=== PATIENT | female | born 1940 | race Caucasian/White ===

== ENCOUNTER → 2018-01-05 | Outpatient (CLI) | payer MEDICARE, BC ==
[~2018-01-05] MED LIST: ALPR.5 PO; BISA10S PR; CEPH250A PO; DOCU100 PO; LOSA50 PO; Milk Of Ma400 MG/5 M PO; OLME20 PO; OXYM.05NI; PROC10 PO; PROC5 PO; PROM25 PO; PROM25S PR; PROP10 PO
== END ==
LOC: LAB SHORT 07:49 → PLD 07:49
DX: D48.5 Neoplasm of uncertain behavior of skin (principal); L82.1 Other seborrheic keratosis
CPT/HCPCS: 88305

== ENCOUNTER 2018-02-05 11:38 | Day surgery (SDC) | payer MEDICARE, BC ==
[~2018-02-05] VITALS: Ht 157.5 cm; Wt 98.4 kg
== END 2018-02-05 14:38 | disposition home or self-care (01) ==
LOC: ORSCSDS 11:38
PROVIDERS: Ophthalmology
PROC: 08RJ3JZ Replacement of Right Lens with Synthetic Substitute, Percutaneous Approach (ICD-10-PCS; principal; 2018-02-05 13:30)
DX: H25.11 Age-related nuclear cataract, right eye (principal); I10 Essential (primary) hypertension; J45.909 Unspecified asthma, uncomplicated; K21.9 Gastro-esophageal reflux disease without esophagitis; E66.9 Obesity, unspecified; Z68.39 Body mass index [BMI] 39.0-39.9, adult; Z87.891 Personal history of nicotine dependence; Z79.82 Long term (current) use of aspirin; Z79.899 Other long term (current) drug therapy
CPT/HCPCS: J2250; J7040; V2632

== ENCOUNTER 2018-09-03 09:43 | Day surgery (SDC) | payer MEDICARE, BC ==
[~2018-09-03] VITALS: Ht 157.5 cm; Wt 97.1 kg
[~2018-09-03 09:43] MED LIST changes: +Aspirin EC81 MG; +FAMO20; +GABA300; +PRAV20
[2018-09-03] MEDS ORDERED: LISI20 PO (10:58)
== END 2018-09-03 12:22 | disposition home or self-care (01) ==
LOC: ORSCSDS 09:43
PROVIDERS: Ophthalmology
PROC: 08RK3JZ Replacement of Left Lens with Synthetic Substitute, Percutaneous Approach (ICD-10-PCS; principal; 2018-09-03 11:30)
DX: H25.12 Age-related nuclear cataract, left eye (principal); I10 Essential (primary) hypertension; J45.909 Unspecified asthma, uncomplicated; K21.9 Gastro-esophageal reflux disease without esophagitis; E66.01 Morbid (severe) obesity due to excess calories; Z68.39 Body mass index [BMI] 39.0-39.9, adult; Z79.82 Long term (current) use of aspirin; Z79.899 Other long term (current) drug therapy
CPT/HCPCS: J2001; J2250; J3010; J7120; V2632

== ENCOUNTER → 2019-04-05 | Outpatient (CLI) | payer MEDICARE, BC ==
[~2019-04-05] MED LIST changes: +LISI20 PO
== END | disposition home or self-care (01) ==
LOC: LAB SHORT 18:30 → LAB 18:30
DX: R30.0 Dysuria (principal)
CPT/HCPCS: 87077; 87086; 87186

== ENCOUNTER 2022-06-22 21:24 | Emergency (ER) | payer MEDICARE, BC ==
[~2022-06-22] VITALS: Ht 157.5 cm; Wt 90.3 kg
[2022-06-22 21:57] LABS: BASOPHILS ABSOLUTE AUTO 0.16 K/mm3 (0.00-0.23); BASOPHILS PERCENT AUTO 1 % (0-2); EOSINOPHILS ABSOLUTE AUTO 0.37 K/mm3 (0.00-0.68); EOSINOPHILS PERCENT AUTO 2 % (0-6); Hematocrit 45.4 % (33.0-51.0); Hemoglobin 14.8 g/dL (11.5-16.0); IMMATURE GRAN ABSOLUTE AUTO 0.41 K/mm3 (0.00-0.10); IMMATURE GRAN PERCENT AUTO 3 % (0-1); LYMPHOCYTES ABSOLUTE AUTO 1.47 K/mm3 (0.84-5.20); LYMPHOCYTES PERCENT AUTO 9 % (21-46); MONOCYTES ABSOLUTE AUTO 0.71 K/mm3 (0.16-1.47); MONOCYTES PERCENT AUTO 4 % (4-13); Mean Corpuscular HGB 27.7 pg (26.0-34.0); Mean Corpuscular HGB Conc 32.6 g/dL (31.5-36.5); Mean Corpuscular Volume 85 fL (80-100); Mean Platelet Volume 11.7 fL (9.1-12.4); NEUTROPHILS PERCENT AUTO 81 % (41-73); NRBC ABSOLUTE 0.03 K/mm3 (0.00-0.02); NRBC Auto 0.2 /100 WBC (0.0-0.2); Platelet Count 512 K/mm3 (150-400); RDW Coefficient Variation 16.3 % (11.7-14.2); RDW Standard Deviation 50.9 fL (35.1-46.3); Red Blood Cell Count 5.34 M/mm3 (3.80-5.20); White Blood Cell Count 16.02 K/mm3 (4.00-11.30)
[2022-06-22 22:14] LABS: Albumin, Blood 3.3 g/dL (3.4-5.0); Bilirubin, Total 0.4 mg/dL (0.1-1.0); Bun/Creatinine Ratio 24.6 (12.0-20.0); Calcium, Blood 8.3 mg/dL (8.5-10.1); Creatinine, Blood 0.9 mg/dL (0.40-1.00); Globulin, Blood 3.3 g/dL (2.2-4.0); Potassium, Blood 4.4 mmol/L (3.5-5.5); Total Protein, Blood 6.6 g/dL (6.4-8.2)
[2022-06-23 01:06] LABS: Blood, Urine Neg (Neg); Glucose Qualitative, Urine Neg (Neg); Ketones, Urine Neg (Neg); Leukocyte Esterase, Urine 1+ (Neg); Nitrite, Urine Pos (Neg); Protein, Urine 1+ (Neg); Urobilinogen, Urine 2+ (Normal)
[2022-06-23 01:14] LABS: Appearance, Urine Clear (Clear); Bilirubin, Urine 2+ (Neg); Color, Urine Orange (P-Yellow)
[2022-06-23 01:15] LABS: Bacteria Few /hpf; Red Blood Cells, Urine Not Seen /hpf (0-2); Squamous Epithelial Cells Rare /hpf (Few)
[2022-06-23 04:40] LABS: Influenza A, PCR NEGATIVE (NEGATIVE); Influenza B, PCR NEGATIVE (NEGATIVE); Resp Syncytial Virus, PCR NEGATIVE (NEGATIVE); SARS-Cov-2 (COVID-19) PCR, MMC NEGATIVE (NEGATIVE)
== END 2022-06-23 05:20 | disposition short-term general hospital (02) ==
LOC: ER 21:24
PROVIDERS: Emergency Medicine; Physician Assistant
DX: R10.9 Unspecified abdominal pain (principal); D72.829 Elevated white blood cell count, unspecified; R11.2 Nausea with vomiting, unspecified; J45.909 Unspecified asthma, uncomplicated; Z88.2 Allergy status to sulfonamides; Z88.8 Allergy status to other drugs, medicaments and biological substances; Z79.899 Other long term (current) drug therapy; Z79.82 Long term (current) use of aspirin
CPT/HCPCS: 0241U; 36415; 74177; 80053; 81001; 83605; 83690; 85025; J0696; J1170; J2405; J2550; J2765; J7030; Q9967

== ENCOUNTER → 2022-10-08 | Outpatient (CLI) | payer MEDICARE, BC | END | disposition home or self-care (01) | LOC: LAB 14:27 → LAB SHORT 14:27 | DX: C44.42 Squamous cell carcinoma of skin of scalp and neck (principal) | CPT/HCPCS: 88305 ==

== ENCOUNTER → 2022-11-06 | Outpatient (CLI) | payer MEDICARE, BC | END | disposition home or self-care (01) | LOC: LAB SHORT 12:08 → PLD 12:08 | DX: C44.42 Squamous cell carcinoma of skin of scalp and neck (principal) | CPT/HCPCS: 88305 ==

== ENCOUNTER 2024-02-27 09:01 | Observation (INO) | payer MEDICARE, BC ==
[~2024-02-27] VITALS: Ht 157.5 cm; Wt 74.8 kg
[2024-02-27 09:43] LABS: BASOPHILS ABSOLUTE AUTO 0.17 K/mm3 (0.00-0.23); BASOPHILS PERCENT AUTO 1 % (0-2); EOSINOPHILS ABSOLUTE AUTO 0.35 K/mm3 (0.00-0.68); EOSINOPHILS PERCENT AUTO 2 % (0-6); Hematocrit 44.6 % (33.0-51.0); Hemoglobin 14.4 g/dL (11.5-16.0); IMMATURE GRAN ABSOLUTE AUTO 0.51 K/mm3 (0.00-0.10); IMMATURE GRAN PERCENT AUTO 3 % (0-1); LYMPHOCYTES ABSOLUTE AUTO 1.43 K/mm3 (0.84-5.20); LYMPHOCYTES PERCENT AUTO 9 % (21-46); MONOCYTES ABSOLUTE AUTO 0.51 K/mm3 (0.16-1.47); MONOCYTES PERCENT AUTO 3 % (4-13); Mean Corpuscular HGB 27.1 pg (26.0-34.0); Mean Corpuscular HGB Conc 32.3 g/dL (31.5-36.5); Mean Corpuscular Volume 84 fL (80-100); Mean Platelet Volume 11.6 fL (9.1-12.4); NEUTROPHILS ABSOLUTE AUTO 13.73 K/mm3 (1.96-9.15); NEUTROPHILS PERCENT AUTO 82 % (41-73); Platelet Count 614 K/mm3 (150-400); RDW Coefficient Variation 17.1 % (11.7-14.2); Red Blood Cell Count 5.31 M/mm3 (3.80-5.20)
[2024-02-27 10:12] LABS: Albumin, Blood 3.5 g/dL (3.4-5.0); Albumin/Globulin Ratio 1.1 (0.8-1.8); Bilirubin, Total 0.5 mg/dL (0.1-1.0); Bun/Creatinine Ratio 21.3 (12.0-20.0); Calcium, Blood 9.2 mg/dL (8.5-10.1); Creatinine, Blood 1.08 mg/dL (0.40-1.00); Globulin, Blood 3.2 g/dL (2.2-4.0); Potassium, Blood 4.2 mmol/L (3.5-5.5); Total Protein, Blood 6.7 g/dL (6.4-8.2)
[2024-02-27] MEDS ORDERED: Pantoprazole Sodium 40 MG Injection IV STA (14:38)
[2024-02-27] MEDS ORDERED: NS 1,000 ML IV SCH (14:40)
[2024-02-27] MEDS ORDERED: Pantoprazole Sodium 40 MG in NS 50 ML IV SCH (14:45)
[2024-02-27 16:33] VITALS: BP 130/77
[2024-02-27 16:48] LABS: Hematocrit 45.1 % (33.0-51.0); Hemoglobin 14.5 g/dL (11.5-16.0)
--- NOTE | 2024-02-27 17:29 | NUR ---
Pt. is awake in her bed when she welcomes my visit. While we have never met, the Pt. 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 facilitate a reveiw of what brought the Pt. to the hospital. Considered matters of jorge and belief. Pt. displays evidence of being confident in her jorge and she is also engaged and aware of her current situation. Prayed with the Pt. Pt. verbalized gratitude for the spiritual care visit.
--- NOTE | 2024-02-27 18:05 | NUR ---
ADMISSION: REPORT RECEIVED FROM ED RN. PT TO ROOM AT ABOUT 1630. PT IS A/O ABLE TO AMBULATE TO BED FROM [facility] WITH CANE. VSS. PROTONIX DRIP INFUSING. PT DENIES PAIN. REPORTS NO STOOL FROM OSTOMY AND THAT SHE JUST CHANGED OSTOMY BAG. THERE IS NO STOOL PRESENT AT TIME OF ASSESSMENT. PT DENIES DIZZINESS. PT ORIENTED TO ROOM AND CALL LIGHT IN REACH. DR. PAINTER NOTIFIED OF HER ARRIVAL.
--- NOTE | 2024-02-27 18:08 | NUR ---
SUMMARY: NO ACUTE CHANGE SINCE ADMISSION. ADMISSION HX AND ASSESSMENT COMPLETED. TELE AND VS STABLE. IV PROTONIX CONTINUES TO INFUSE. CALL LIGHT IN REACH.
[2024-02-27] MEDS ORDERED: LOSA50 PO (18:23)
[2024-02-27] MEDS ORDERED: OZEMPIC2 MG/0.75 (18:24)
[2024-02-27 19:26] VITALS: BP 139/67
[2024-02-27] MEDS ORDERED: Propranolol HCL 20 MG TAB PO SCH ×2 (21:00)
[2024-02-27] MEDS ORDERED: Losartan Potassium 50 MG Tab PO SCH (21:00)
[2024-02-27 21:10] LABS: Hematocrit 43.7 % (33.0-51.0); Hemoglobin 13.9 g/dL (11.5-16.0)
[2024-02-28 03:10] VITALS: BP 110/55
[2024-02-28 03:45] LABS: Hematocrit 42.2 % (33.0-51.0); Hemoglobin 13.3 g/dL (11.5-16.0)
[2024-02-28 04:10] LABS: Bun/Creatinine Ratio 18.3 (12.0-20.0); Calcium, Blood 8.6 mg/dL (8.5-10.1); Creatinine, Blood 1.09 mg/dL (0.40-1.00); Potassium, Blood 4.7 mmol/L (3.5-5.5)
[2024-02-28 07:35] VITALS: BP 130/76
[2024-02-28] MEDS ORDERED: DEXTROMETHORPHAN/BENZOCAINE 1 EACH LOZENGE MT PRN (07:45)
[2024-02-28 09:24] LABS: Hematocrit 39.1 % (33.0-51.0); Hemoglobin 12.6 g/dL (11.5-16.0)
--- NOTE | 2024-02-28 13:25 | NUR ---
DISCHARGE SUMMARY S/P GI BLEED, A/OX4, VSS, TOLERATING DIET, PAIN TOLERABLE. DISCUSSED DISCHARGE INFORMATION WITH HER INCLUDING HOME CARE, MEDICATIONS, AND FOLLOW UP APPOINTMENTS. NO QUESTIONS AT THIS TIME, IV ACCESS REMOVED 2X DURING DC INSTRUCTIONS, ESCORTED OUT VIA WC TO PRIVATE AUTO TO GO HOME.
== END 2024-02-28 12:04 | disposition home or self-care (01) ==
LOC: ER 09:01 → SURS 09:02
PROVIDERS: Emergency Medicine; Student in an Organized Health Care Education/Training Program; ADMIT Internal Medicine
DX: K92.2 Gastrointestinal hemorrhage, unspecified (principal); N13.30 Unspecified hydronephrosis; I10 Essential (primary) hypertension; I72.9 Aneurysm of unspecified site; I48.91 Unspecified atrial fibrillation; G47.33 Obstructive sleep apnea (adult) (pediatric); E11.42 Type 2 diabetes mellitus with diabetic polyneuropathy; J45.909 Unspecified asthma, uncomplicated; J44.9 Chronic obstructive pulmonary disease, unspecified; H81.09 Meniere's disease, unspecified ear; Z93.3 Colostomy status; Z88.8 Allergy status to other drugs, medicaments and biological substances; Z88.2 Allergy status to sulfonamides
CPT/HCPCS: 36415; 74177; 80048; 80053; 83690; 85014; 85018; 85025; 86850; 86900; 86901; 93005; 93010; 94760; 96365-59; 96376; 99285-25; A9270; C9113; G0378; J7030; Q9967

== ENCOUNTER 2024-07-27 04:08 | Day surgery (SDC) | payer MEDICARE, BC ==
[~2024-07-27 04:08] MED LIST changes: +OZEMPIC2 MG/0.75; +Percocet 5-3251 EACH PO; +TRAM50 PO
== END 2024-07-27 23:00 | disposition home or self-care (01) ==
LOC: WOUND 04:08
DX: T81.31XD Disruption of external operation (surgical) wound, not elsewhere classified, subsequent encounter (principal); J44.9 Chronic obstructive pulmonary disease, unspecified; I10 Essential (primary) hypertension; Z87.891 Personal history of nicotine dependence
CPT/HCPCS: G0463

== ENCOUNTER 2024-08-04 05:23 | Day surgery (SDC) | payer MEDICARE, BC | END 2024-08-04 23:00 | disposition home or self-care (01) | LOC: WOUND 05:23 | DX: T81.321D Disruption or dehiscence of closure of internal operation (surgical) wound of abdominal wall muscle or fascia, subsequent encounter (principal); Y83.8 Other surgical procedures as the cause of abnormal reaction of the patient, or of later complication, without mention of misadventure at the time of the procedure | CPT/HCPCS: G0463 ==

== ENCOUNTER 2024-08-27 06:18 | Day surgery (SDC) | payer MEDICARE, BC | END 2024-08-27 23:00 | disposition home or self-care (01) | LOC: WOUND 06:18 | DX: T81.31XD Disruption of external operation (surgical) wound, not elsewhere classified, subsequent encounter (principal) | CPT/HCPCS: G0463 ==

== ENCOUNTER 2024-09-10 03:28 | Day surgery (SDC) | payer MEDICARE, BC | END 2024-09-12 23:00 | disposition home or self-care (01) | LOC: WOUND 03:28 | DX: T81.31XD Disruption of external operation (surgical) wound, not elsewhere classified, subsequent encounter (principal); E78.5 Hyperlipidemia, unspecified; R73.09 Other abnormal glucose | CPT/HCPCS: 36415; 80053; 80061; 83036; 85025; G0463 ==

== ENCOUNTER 2025-07-29 02:11 | Inpatient (IN) | payer MEDICARE, BC ==
[2025-07-29] VITALS (26 sets, daily range): BP systolic 91–166; BP diastolic 52–121
[~2025-07-29] VITALS: Ht 167.6 cm; Wt 85.3 kg
[~2025-07-29 02:11] MED LIST changes: -FAMO20; +FAMO20 PO
[2025-07-29] MEDS ORDERED: Piperacillin/Tazobactam Sod 4.5 GM in NS 100 ML IV ONE (02:25)
[2025-07-29 02:32] LABS: Hematocrit 34.9 % (33.0-51.0); Hemoglobin 10.3 g/dL (11.5-16.0); Mean Corpuscular HGB Conc 29.5 g/dL (31.5-36.5); Mean Corpuscular Volume 84 fL (80-100); NRBC ABSOLUTE 0.02 K/mm3 (0.00-0.02); NRBC Auto 0.1 /100 WBC (0.0-0.2); Platelet Count 470 K/mm3 (150-400); RDW Coefficient Variation 19.4 % (11.7-14.2); RDW Standard Deviation 58.4 fL (35.1-46.3)
[2025-07-29 02:38] LABS: Source, Urine Clean Catch
[2025-07-29 02:51] LABS: Glucose Qualitative, Urine Neg (Neg); Ketones, Urine Neg (Neg); Leukocyte Esterase, Urine 2+ (Neg); Protein, Urine 3+ (Neg); Specific Gravity, Urine 1.025 (1.003-1.022); Urobilinogen, Urine 1+ (Normal)
[2025-07-29 02:55] LABS: BASOPHILS ABSOLUTE MAN 0.00 K/mm3 (0.00-0.23); BASOPHILS PERCENT MAN 0 % (0-2); EOSINOPHILS ABSOLUTE MAN 0.31 K/mm3 (0.00-0.68); EOSINOPHILS PERCENT MAN 2 % (0-6); LYMPHOCYTES ABSOLUTE MAN 1.27 K/mm3 (0.84-5.20); LYMPHOCYTES PERCENT MAN 8 % (21-46); MONOCYTES ABSOLUTE MAN 0.31 K/mm3 (0.16-1.47); MONOCYTES PERCENT MAN 2 % (4-13); NEUTROPHILS ABSOLUTE MAN 13.98 K/mm3 (1.96-9.15); SEG NEUTROPHILS PERCENT MAN 88 % (41-73)
[2025-07-29 02:56] LABS: Alanine Aminotransfer (ALT/SGP 141.0 U/L (12-78); Albumin, Blood 1.8 g/dL (3.4-5.0); Albumin/Globulin Ratio 1.1 (0.8-1.8); Anion Gap 17.0 mmol/L (3-11); Aspartate Aminotrans (AST/SGOT 160.0 U/L (12-37); Bilirubin, Total 0.5 mg/dL (0.1-1.0); Blood Urea Nitrogen 19.0 mg/dL (8-24); CO2, Blood 15.0 mmol/L (21-32); Calcium, Blood 7.2 mg/dL (8.5-10.1); Chloride, Blood 110.0 mmol/L (98-108); Creatinine, Blood 0.75 mg/dL (0.40-1.00); Globulin, Blood 1.7 g/dL (2.2-4.0); Glucose, Blood 149.0 mg/dL (70-99); Magnesium, Blood 1.3 mg/dL (1.6-2.4); Potassium, Blood 4.5 mmol/L (3.5-5.5); Sodium, Blood 137.0 mmol/L (136-145); Total Protein, Blood 3.5 g/dL (6.4-8.2)
[2025-07-29 03:02] LABS: pH Blood Venous 7.29 (7.34-7.37)
[2025-07-29 03:05] LABS: Bilirubin, Urine 1+ (Neg)
[2025-07-29] MEDS ORDERED: Magnesium Sulf 2 GM/Water 50ML 50 ML IV ONE (03:05)
[2025-07-29 03:06] LABS: Color, Urine Yellow (P-Yellow); White Blood Cells, Urine 50-100 /hpf (0-5)
[2025-07-29] MEDS ORDERED: FLU VACC TS2025(65UP)/MF59C/PF 45 MCG/0.5 ML SYRINGE IM SCH (04:05)
[2025-07-29] MEDS ORDERED: BUSPIRONE HCL10 M6 PO (04:06)
[2025-07-29] MEDS ORDERED: ALPRAZOLAM0.5 M1 PO (04:07)
[2025-07-29] MEDS ORDERED: NITROGLYCERIN0.4 M3 SL (04:07)
[2025-07-29] MEDS ORDERED: PLAVIX75 MG PO (04:08)
[2025-07-29] MEDS ORDERED: Albuterol 2.5 MG/3 ML VIAL INH PRN (04:10)
[2025-07-29] MEDS ORDERED: Vancomycin (Pharmacy Consult) IV SCH (04:10)
[2025-07-29] MEDS ORDERED: PROPRANOLOL HCL80 MG PO (04:10)
[2025-07-29] MEDS ORDERED: CefTRIAXone Sodium 1,000 MG in NS 100 ML IV SCH (04:27)
[2025-07-29 05:47] LABS: pH Blood Venous 7.34 (7.34-7.37)
--- NOTE | 2025-07-29 07:32 | NUR ---
NEW ADMIT RECEIVED PT FROM ED AT 0512 THIS AM. MONITORS PLACED, PT ORIENTED TO ROOM AND SURROUNDINGS/CALL LIGHT. PT DROWSY, BUT EASILY AROUSABLE, FOLLOWS COMMANDS, ANSWERS QUESTIONS APPROP. SB 50'S, LEVO WAS INFUSING AT 1 MCG TO KEEP MAP >65, CURRENTLY OFF. VSS AT THIS TIME. REPORT GIVEN TO DAY RN. REVIEWED ALL OUTSTANDING ISSUES AND PROBLEMS TO DATE.
--- NOTE | 2025-07-29 07:35 | NUR ---
care assumption PT ALERT, ORIENTED, ABLE TO MAKE NEEDS KNOWN. SP02>90% ON 2L NC. ABLE TO SIT FORWARD W/O ASSISTANCE TO ASSESS LUNGS. WEAK COUGH. TELEMETRY SHOWS SINUS JE W/ PVCS, HR 44-50'S. BP SOFT. DENIES PAIN. COLOSTOMY WITH BROWN LOOSE OUTPUT. PT ORIENTED TO CALL LIGHT. LR HUNG PER EMAR. VANCO INFUSING UPON CARE ASSUMPTION PER EMAR. CALL LIGHT IN REACH.
[2025-07-29] MEDS ORDERED: Enoxaparin 40 MG/0.4 ML SYR SC SCH (09:00)
[2025-07-29] MEDS ORDERED: Lactobacil 2-S.Thermo-Bifido 1 1 Cap PO SCH (09:00)
[2025-07-29] MEDS ORDERED: MULTIPLE VITAM1 EACH PO (09:07)
--- NOTE | 2025-07-29 09:22 | NUR ---
Rachelle is awake in bed when she welcomes my visit. Pt. 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 Facilitated a life review and health update. Listened with empathy and a calming presence. Pt. displayed evidence of being aware, engaged, and encouraged by the visit. Pt. verbalized an expectation that she would be transferred to another room. Prayed with the Pt. Pt. verbalized gratitude for the spiritual care visit.
--- NOTE | 2025-07-29 16:39 | NUR ---
UPDATE/SVT PT HR ON TELE INCREASED TO 150'S. UPON ENTERING ROOM, THIS RN AND BREAK RN, PT STATES, "I CAN FEEL MY HEART BEATING FAST". VITALS TAKEN. EKG DONE, SEE CHART. MD GIRON NOTIFIED. PT ATTEMPTED BLOWING ON SYRINGE, ATTEMPTED VAGAL MANUEVER AND COUGHING WITHOUT SUCCESSFUL CONVERSION. MD GIRON AT BEDSIDE W/ ORDERS FOR ADENOSINE. ZOLL PADS ON, ZOLL AT BEDSIDE. 6MG ADENOSINE PUSHED WITHOUT SUCCESSFUL CONVERSION. PT SYMPTOMATIC. MD GIRON W/ ORDERS FOR 12MG ADENOSINE, PUSHED W/ CONVERSION TO SINUS JE, HR CURRENTLY 55. PT STATES RELIEF OF SYMPTOMS. ZOLL PATCHES REMAIN ON W/ ZOLL AT BEDSIDE. FAMILY BROUGHT TO BEDSIDE AND UPDATED. CALL LIGHT IN REACH.
--- NOTE | 2025-07-29 18:24 | NUR ---
shift summary no acute changes since previous note. pt refused dinner. currently napping in room, call light in reach.
--- NOTE | 2025-07-29 22:00 | NUR ---
PROVIDER NOTIFY, PT STATUS CHANGE PT HR 150'S STARTING AT 2140, SVT NOTED, HAD PT BLOW IN SYRINGE, CON'T IN SVT, DR APODACA NOTIFIED AND CAME TO BEDSIDE. PT C/O CHEST DISCOMFORT AND SOB, ANXIETY NOTED. 12 LEAD EKG DONE PRIOR TO ADENOSINE 6 MG, FOLLOWED BY 12 MG, CONVERTED BACK TO SINUS JE 62 AFTER 12 MG DOSE AT 2156. POST TX 12 LEAD EKG RECORDED PER DR APODACA. PT DENIES CONTINUED SYMPTOMS AFTER TX. ORDERS RECEIVED FOR STAT CHEMISTRY PANEL, CARDIOLOGY CONSULT. CONTINUING TO MONITOR.
[2025-07-29 22:50] LABS: Magnesium, Blood 2.3 mg/dL (1.6-2.4)
[2025-07-29 22:51] LABS: Anion Gap 10.0 mmol/L (3-11); Blood Urea Nitrogen 26.0 mg/dL (8-24); CO2, Blood 22.0 mmol/L (21-32); Calcium, Blood 8.1 mg/dL (8.5-10.1); Chloride, Blood 108.0 mmol/L (98-108); Creatinine, Blood 1.26 mg/dL (0.40-1.00); Glucose, Blood 123.0 mg/dL (70-99); Potassium, Blood 4.8 mmol/L (3.5-5.5); Sodium, Blood 135.0 mmol/L (136-145)
[2025-07-30] VITALS (37 sets, daily range): BP systolic 104–163; BP diastolic 48–119
[2025-07-30] MEDS ORDERED: Diltiazem HCl 5 MG / ML 5ML Vial IV ONE (03:15)
[2025-07-30 03:32] LABS: Hematocrit 43.4 % (33.0-51.0); Hemoglobin 13.3 g/dL (11.5-16.0); Mean Corpuscular HGB Conc 30.6 g/dL (31.5-36.5); Mean Corpuscular Volume 81 fL (80-100); NRBC ABSOLUTE 0.00 K/mm3 (0.00-0.02); NRBC Auto 0.0 /100 WBC (0.0-0.2); Platelet Count 521 K/mm3 (150-400); RDW Coefficient Variation 19.8 % (11.7-14.2); RDW Standard Deviation 56.1 fL (35.1-46.3)
[2025-07-30 03:52] LABS: Anion Gap 10.0 mmol/L (3-11); Blood Urea Nitrogen 25.0 mg/dL (8-24); CO2, Blood 22.0 mmol/L (21-32); Calcium, Blood 8.4 mg/dL (8.5-10.1); Chloride, Blood 108.0 mmol/L (98-108); Creatinine, Blood 1.12 mg/dL (0.40-1.00); Glucose, Blood 135.0 mg/dL (70-99); Magnesium, Blood 2.3 mg/dL (1.6-2.4); Potassium, Blood 4.8 mmol/L (3.5-5.5); Sodium, Blood 135.0 mmol/L (136-145)
[2025-07-30] MEDS ORDERED: Diltiazem HCl 5 MG / ML 10ML Vial IV ONE (04:00)
--- NOTE | 2025-07-30 06:47 | NUR ---
SHIFT SUMMARY PT A/O X4 T/O SHIFT, FOLLOWS COMMANDS APPROP. MAEE X4 W/GENERALIZED WEAKNESS. BOUGHTS OF SVT IN 150'S, DR APODACA CAME TO BS, 12-LEAD EKG DONE, ORDERS FOR ADENSOSINE 6MG, THEN 12 MG GIVEN, CONVERTED BACK TO SB 50'S. 2ND BOUGHT THIS AM, CARDIZEM 20MG IVP GIVEN, CONVERTED BACK TO SB 50'S-60'S. C/O CHEST DISCOMFORT, SOB AND ANXIETY DURING EVENTS WHICH RESOLVED QUICKLY AFTER TX. VSS SINCE LAST EPISODE AROUND 0300. AFEBRILE. DENIES CHEST DISCOMFORT, SOB, ANXIETY AT THIS TIME. WILL UPDATE DAY RN WITH ALL OUTSTANDING ISSUES AND PROBLEMS TO DATE.
--- NOTE | 2025-07-30 10:05 | NUR ---
AM NOTE: THIS RN ASSUMED CARE OF PT AT APPROX 0700, REPORT FROM TERRI XIAO. PT A/OX4, ABLE TO MAKE NEEDS KNOWN. YUHAAVIATAM. VSS. HR 40-50'S, SINUS JE ON MONITOR. SBP 110-140'S, MAP >65. DENIES CHEST PAIN/PRESSURE. SPO2 >95% ON 2L VIA NC. AFEBRILE. PW IN PLACE DRAINING YELLOW URINE TO SUCTION. TOLERATING PO INTAKE WELL. AT 0945, DARK ROOM ATTENDANT SHOWS SVT W/ HR 150'S. PT ENDORSES PALPITATIONS. DR. GIRON TO BEDSIDE. ORDERS RECEIVED TO ADMINISTER 6 MG ADENOSINE; ADENOSINE ADMINISTERED W/ PT VERBAL CONSENT FOLLOWING EDUCATION, CONVERTED BACK TO SINUS JE W/ HR 50'S AT 0954. PT REPORTS FEELING "MUCH BETTER THAN LAST TIME". SBP 130'S, MAP >[address] GIRON STATES PLAN IS TO START AMIO GTT PER CARDIOLOGY RECOMMENDATION.
[2025-07-30] MEDS ORDERED: Amiodarone HCl 450 MG in NS 250 ML IV SCH (10:10)
--- NOTE | 2025-07-30 11:38 | NUR ---
SVT: AT 1120 SENIOR MEDIA BUYER SHOWING SVT W/ HR 150'S. PT REPORTS CHEST PAIN 7/10 RADIATING TO NECK/SHOULDERS. CALL PLACED TO DR. GIRON, ORDERS RECEIVED FOR 6MG ADENOSINE W/ SUBSEQUENT 12MG IF SVT SUSTAINS. AT 1125 6MG IVP ADENOSINE ADMINISTERED; NO CHANGE IN HR/RHYTHM. AT 1127 12MG IVP ADENOSINE ADMINISTERED; MONITOR SHOWS RHYTHM CHANGE TO SINUS JE W/ HR 50'S. PT REPORTS INCREASED SOB/CHEST PAIN W/ ADENOSINE ADMINISTRATION. CALL PLACED TO DR. GIRON W/ UPDATE. BP REMAINS STABLE, AMIO GTT INFUSING PER EMAR.
--- NOTE | 2025-07-30 15:45 | NUR ---
TRANSFER TO [facility]: PT TRANSPORTED TO [facility] AT 1530 [facility]IA [facility]. REPORT TO DEALER ANALYST & KASH RN AT [facility]. PT A/OX4, ANXIOUS ABOUT TRANSPORT; MEDICATED PRIOR TO DEPARTURE FOR ANXIETY PER EMAR. VSS. HR 50'S, SINUS JE ON MONITOR. SBP 110-140'S, MAP >65. SEE PREVIOUS NOTES FOR ACUTE EVENTS THIS SHIFT. SPO2 >90% ON ROOM AIR, RESPIRATIONS EVEN & UNLABORED. AFEBRILE. CLEAR YELLOW URINE OUTPUT VIA [place]. NO BM'S. TOLERATING HEART HEALTHY DIET WELL. PT'S SON TRANSPORTED ALL BELONGINGS HOME EXCEPT PT'S PHONE THAT SHE REQUESTS TO TAKE WITH HER.
== END 2025-07-30 15:47 | disposition short-term general hospital (02) | DRG 871 ==
LOC: ER 02:11 → ICUE 02:12
PROVIDERS: Internal Medicine; Student in an Organized Health Care Education/Training Program; ADMIT Student in an Organized Health Care Education/Training Program
PROC: 3E03329 Introduction of Other Anti-infective into Peripheral Vein, Percutaneous Approach (ICD-10-PCS; principal; 2025-07-29)
PROC: 3E033XZ Introduction of Vasopressor into Peripheral Vein, Percutaneous Approach (ICD-10-PCS; 2025-07-29)
DX: A41.9 Sepsis, unspecified organism (principal); I21.A1 Myocardial infarction type 2; J18.9 Pneumonia, unspecified organism; J96.01 Acute respiratory failure with hypoxia; R65.21 Severe sepsis with septic shock; J96.02 Acute respiratory failure with hypercapnia; N30.00 Acute cystitis without hematuria; E87.4 Mixed disorder of acid-base balance; I47.10 Supraventricular tachycardia, unspecified; J44.9 Chronic obstructive pulmonary disease, unspecified; I48.91 Unspecified atrial fibrillation; G47.33 Obstructive sleep apnea (adult) (pediatric); I10 Essential (primary) hypertension; E11.9 Type 2 diabetes mellitus without complications; R00.1 Bradycardia, unspecified; E83.42 Hypomagnesemia; Z88.8 Allergy status to other drugs, medicaments and biological substances; Z88.2 Allergy status to sulfonamides; Z88.5 Allergy status to narcotic agent; Z87.19 Personal history of other diseases of the digestive system; Z90.49 Acquired absence of other specified parts of digestive tract; Z87.891 Personal history of nicotine dependence; Z87.442 Personal history of urinary calculi; Z93.3 Colostomy status
CPT/HCPCS: 36415; 51702; 71045; 80048; 80053; 81001; 82803; 82947; 83605; 83690; 83735; 83880; 84145; 84443; 84484; 85025; 85027; 87086; 93005; 93010; 93306; 96365-59; 96368; 99285-25; A9270; J0153; J0282; J0456; J0696; J1650; J2543; J3373; J3475; J7040; J7050; J7120